=== PATIENT | female | born 1960 | race Caucasian/White ===

== ENCOUNTER → 2018-09-21 | Outpatient (CLI) | payer OTHER ==
--- NOTE | 2018-09-23 15:25 | RADRPT ---
PROCEDURE: Leg length survey CLINICAL INDICATION: Pain, preoperative TECHNIQUE: Standing composite frontal views of the lower extremities with calibrated ruler were obt ained COMPARISON: None FINDINGS: There is lateral pelvic tilt with superiorly positioned left femur and iliac wing. Right leg: The mechanical axis measured by the line at the top of the femoral head to the middle of t he tibial plafond passes through the lateral tibial spine compatible with mild genu valgus. And calib rated length is 91.7 cm. Calibrated length from the top of the femoral head to the tibial plafond is 85 cm. Left leg: Mechanical axis measured by the line at the top of the femoral head to the middle of the t ibial plafond measures 95.8 cm on single uncalibrated image, and passes through the medial tibial spi ne. Calibrated line from the top of the femoral head to the tibial plafond is 89 centimeter. Bilateral hip marginal osteophyte formation without significant cartilage space narrowing. Lower lumb ar spine, sacrum and pubic symphysis are obscured by overlying ruler bowel gas. Severe lateral and me dial tibio-femoral compartment cartilage space narrowing with subchondral sclerosis, subchondral cyst ic change and marginal osteophyte formation in the right knee, and moderate medial tibio-femoral and mild to moderate lateral tibio-femoral compartment cartilage space narrowing with subchondral scleros is and marginal osteophyte formation as well as subchondral cystic change in the left knee. There is tilting of the right talus. IMPRESSION: 1. Leg lengths and mechanical axes as above. 2. Degenerative changes as above. RPTAT: BBDD Physician Jose Date Time Electronically viewed and signed by Physician Jose on 09/23/2018 15:24 AYLA/
== END | disposition home or self-care (01) ==
LOC: HKI 13:36
PROVIDERS: ATTEND Orthopaedic Surgery Adult Reconstructive Orthopaedic Surgery
DX: M17.10 Unilateral primary osteoarthritis, unspecified knee (principal); M25.569 Pain in unspecified knee
CPT/HCPCS: 77073

== ENCOUNTER 2018-12-22 10:04 | Inpatient (IN) | payer OTHER ==
[2018-12-17 12:17] VITALS: Ht 157.5 cm; Wt 60.4 kg
[~2018-12-22] VITALS: Ht 157.5 cm; Wt 60.4 kg
[2018-12-22] VITALS (22 sets, daily range): BP systolic 91–137; BP diastolic 52–75; PULSE 77–94; RESP 12–21
[~2018-12-22 10:04] MED LIST: AMLO2.5T78 PO
[2018-12-22] MEDS ORDERED: AMLO5TAB4 PO (10:30)
[2018-12-22] MEDS ORDERED: GABAPENTIN 300 MG CAP PO SCH (11:30)
[2018-12-22] MEDS ORDERED: TRANEXAMIC ACID 1GM/100ML(PMX) 100 ML PRE-OP X1 IVPB ONE (11:30)
[2018-12-22] MEDS ORDERED: LANSOPRAZOLE 30 MG CAP PO ONE (11:30)
[2018-12-22] MEDS ORDERED: ACETAMINOPHEN 500 MG TAB PO ONE (11:30)
[2018-12-22] MEDS ORDERED: ONDANSETRON 4 MG INJ IV ONE (11:30)
[2018-12-22] MEDS ORDERED: CELECOXIB 200 MG CAP PO ONE ×2 (11:30)
[2018-12-22] MEDS ORDERED: TRANEXAMIC ACID 1GM/100ML(PMX) 100 ML INTRA-OP X1 IVPB ONE (11:30)
[2018-12-22] MEDS ORDERED: LACTATED RINGER'S 1,000 ML IV SCH (11:30)
--- NOTE | 2018-12-22 12:16 | HPN ---
Date/Time of Note Date/Time of Note DATE: 12/22/18 TIME: 12:16 Interval H&P Admission Note Pt. seen H&P reviewed: No system changes Patient denies fever, chills, shortness of breath, chest pain, nausea/vomiting, constipation, diarrhea, numbness, and tingling. MUSCULOSKELETAL: Right lower extremity Skin intact Sensation intact to light touch in a sural, saphenous, deep peroneal, superficial peroneal, medial and lateral plantar nerve distribution. Motor is intact, patient able to dorsiflex and plantarflex ankle and extend and flex great toe. Dorsalis Pedis pulse +2, Brisk capillary refill. Compartments are soft. Calves non-tender to palpation bilaterally. ALEXIA MILES MD December 22, 2018 12:16
--- NOTE | 2018-12-22 12:55 | PREAC ---
Date/Time of Note Date/Time of Note DATE: 12/22/18 TIME: 12:52 Anesthesia Eval and Record Evaluation Time Pre-Procedure Interview DATE: 12/22/18 TIME: 12:52 Age 58 Sex female NPO: 8 hrs Preoperative diagnosis Rt knee arthritis Planned procedure Rt total knee replacement Past Medical History Past Medical History: Includes Cardio: HTN Surgery & Anesthesia Issues No known issue Meds Anticoagulation: No Beta Julianne within 24 hr: No Reason Beta Julianne not given: Pt. not on B-Julianne Reported Medications Amlodipine Besylate* (Norvasc*) 5 Mg Tablet, 5 MG PO DAILY, TAB 12/22/18 Discontinued Reported Medications Amlodipine Besylate* (Amlodipine Besylate*) 2.5 Mg Tablet, 5 MG PO DAILY, #30 TAB 12/17/18 Current Medications Lactated Ringer's 1,000 ml @ 125 mls/hr Q8H IV ; Start 12/22/18 at 11:30; Stop 12/22/18 at 19:29 Gabapentin (Neurontin) 300 mg PRE-OP PO Last administered on 12/22/18at 11:26; Admin Dose 300 MG; Start 12/22/18 at 11:30; Stop 12/22/18 at 15:00 Ropivacaine/ Clonidine/ Epinephrine/ Ketorolac Tromethamine/ Sodium Chloride INTRA-OP INJ ; Start 12/22/18 at 11:30 Meds reviewed: Yes Allergies Coded Allergies: diclofenac (Verified Allergy, Severe, HIVES, DOUBLE VISION, 12/22/18) Allergies Reviewed: Yes Labs/Studies Labs Reviewed: Reviewed by anesthesiologist Blood Bank Test 12/22/18 11:24 Antibody Screen NEGATIVE Blood Type A POSITIVE test: N/A Studies: ECG Pre-procedure Exam Last vitals BP:120/56, P:78, Spo2:100%, T:98,8 Airway: Adequate mouth opening, Adequate thyromental dist Mallampati: Mallampati II Teeth: Normal Lung: Normal Heart: Normal ASA Physical Status ASA physical status: 3 Emergency: None Planned Anesthetic General/MAC: LMA Planned Pain Management Sub-arachniod narcotics, Parenteral pain med Pre-operative Attestations Prior to commencing anesthesia and surgery, the patient was re-evaluated, there was verification of: *The patient's identity *The results of appropriate recent lab work and preoperative vital signs *The above evaluation not changing prior to induction *Anesthetic plan, risk benefits, alternative and complications discussed with patient/family; questions answered; patient/family understands, accepts and wishes to proceed. SAGAR BLEDSOE MD December 22, 2018 12:55
[2018-12-22] MEDS ORDERED: morphine SULFATE/PF (10 MG/10 ML) INJ ONE (12:57)
[2018-12-22] MEDS ORDERED: FENTAnyl 50 MCG/ML VIAL ONE (12:57)
[2018-12-22] MEDS ORDERED: MIDAZOLAM 1 MG/ML 2 ML INJ ONE (12:58)
[2018-12-22] MEDS ORDERED: SEVOFLURANE 15 MIN ONE (13:00)
[2018-12-22] MEDS ORDERED: ONDANSETRON 4 MG INJ ONE (16:36)
[2018-12-22] MEDS ORDERED: PROPOFOL 20 ML ONE (16:37)
[2018-12-22] MEDS ORDERED: CEFAZOLIN 1 GM INJ ONE (16:37)
[2018-12-22] MEDS ORDERED: LIDOCAINE 2% (SDV) 5 ML INJ ONE (16:37)
[2018-12-22] MEDS ORDERED: ROCURONIUM 50 MG INJ ONE (16:37)
[2018-12-22] MEDS: LACTATED RINGER'S 1,000 ML IV SCH (16:48)
[2018-12-22] MEDS ORDERED: DOCUSATE SODIUM 100 MG CAP PO ONE (17:00)
[2018-12-22] MEDS ORDERED: HYDROmorphONE 1 MG/5 ML IV SYRINGE IV PRN ×2 (17:00)
[2018-12-22] MEDS ORDERED: NALOXONE (0.4 MG/ML) INJ IV PRN ×2 (17:00→17:30)
[2018-12-22] MEDS ORDERED: NA PHOSPHATE/BIPHOS 133 ML ENEMA PR PRN (17:00)
[2018-12-22] MEDS ORDERED: MAGNESIUM HYDROXIDE 30ML CUP PO PRN (17:00)
[2018-12-22] MEDS ORDERED: ONDANSETRON 4 MG INJ IV PRN ×2 (17:00→22:30)
[2018-12-22] MEDS ORDERED: BISACODYL 10 MG SUPP PR PRN (17:00)
[2018-12-22] MEDS ORDERED: HYDROmorphONE 1 MG/ML SYG IV PRN (17:00)
[2018-12-22] MEDS ORDERED: oxyCODONE 5 MG TAB PO PRN ×2 (17:00)
[2018-12-22] MEDS ORDERED: METOCLOPRAMIDE 10 MG INJ IV PRN (17:00)
[2018-12-22] MEDS ORDERED: MEPERIDINE 25 MG INJ IV PRN (17:00)
[2018-12-22] MEDS ORDERED: SENNA/DOCUSATE NA (8.6MG/50MG) TAB PO PRN (17:00)
[2018-12-22] MEDS ORDERED: NACL 0.9% 3 ML SYG IV SCH (17:00)
[2018-12-22] MEDS ORDERED: FENTAnyl 50 MCG/ML VIAL IV PRN (17:00)
[2018-12-22] MEDS ORDERED: BETHANECHOL 25 MG TAB PO PRN (17:00)
[2018-12-22] MEDS ORDERED: DIPHENHYDRAMINE 50 MG INJ IV PRN ×2 (17:00)
--- NOTE | 2018-12-22 17:01 | PAC ---
Date/Time of Note Date/Time of Note DATE: 12/22/18 TIME: 17:01 Post-Anesthesia Notes Post-Anesthesia Note Activity: WNL Respiratory function: WNL Cardiovascular function: WNL Mental status: Baseline Pain reasonably controlled: Yes Hydration appropriate: Yes Nausea/Vomiting absent: Yes Comments BP:128/75, P:94, Spo2:100%, T:98,8 SAGAR BLEDSOE MD December 22, 2018 17:01
--- NOTE | 2018-12-22 17:10 | CONS ---
Assessment/Plan Assessment/Plan Hospital Course (Demo Recall) Patient is a female with a past medical history significant for hypertension and rheumatoid arthritis who presents to [place] for his return [facility]sp[facility] for elective total right knee arthroplasty. Patient had uneventful surgery that went well. Patient mildly drowsy in the postanesthesia care unit however denies any headache, nausea, vomiting, chest pain, shortness of breath, abdominal pain. Patient able to move her extremities and denies any acute issues at this time. Patient is mildly sleepy but easily aroused and alert and oriented x4. Of note patient has a past surgical history of appendectomy, myomectomy, tonsillectomy Objective Physical exam General: Patient is laying in bed and answers questions appropriately, mildly sleepy Mentation: Patient is alert and oriented 4, Head: Normocephalic atraumatic Eyes: EOMI, pupils reactive to light Neck: Supple, nontender, midline Respiratory: Clear to auscultation bilaterally Cardiovascular: regular rate, no obvious murmurs Gastrointestinal: non-tender to palpation, bowel sounds heard. Neurological: Moves all extremities spontaneously Skin: Surgery site, bandaged, CDI Assessment and plan Total right knee arthroplasty -Orthopedic surgery to manage -Pain control -Monitor, Hypertension -Continue home amlodipine tomorrow Rheumatoid arthritis -Manage pain, monitor Disposition -Observe overnight for pain management, will continue to follow as internal medicine consult. Consultation Date/Type/Reason Admit Date/Time December 22, 2018 at 10:04 Date/Time of Note DATE: 12/22/18 TIME: 17:10 Past Medical History Home Meds Reported Medications Amlodipine Besylate* (Norvasc*) 5 Mg Tablet, 5 MG PO DAILY, TAB 12/22/18 Discontinued Reported Medications Amlodipine Besylate* (Amlodipine Besylate*) 2.5 Mg Tablet, 5 MG PO DAILY, #30 TAB 12/17/18 Medications Current Medications Lactated Ringer's 1,000 ml @ 125 mls/hr Q8H IV ; Start 12/22/18 at 11:30; Stop 12/22/18 at 19:29 Hydromorphone HCl (Dilaudid) 0.2 mg PACU PRN IV MILD PAIN 1-3; Start 12/22/18 at 17:00; Status UNV Hydromorphone HCl (Dilaudid) 0.4 mg PACU PRN IV MOD PAIN 4-6; Start 12/22/18 at 17:00; Status UNV Fentanyl (Sublimaze) 25 mcg PACU ORDER PRN IV MILD PAIN 1-3; Start 12/22/18 at 17:00; Status UNV Ondansetron HCl (Zofran Inj) 4 mg PACU ORDER PRN IV NAUSEA/VOMITING; Start 12/22/18 at 17:00; Status UNV Metoclopramide HCl (Reglan) 10 mg PACU ORDER PRN IV NAUSEA/VOMITING; Start 12/22/18 at 17:00; Status UNV Meperidine HCl (Demerol) 25 mg PACU ORDER PRN IV .RIGORS; Start 12/22/18 at 17:00; Status UNV Diphenhydramine HCl (Benadryl) 25 mg PACU ORDER PRN IV .PRURITUS; Start 12/22/18 at 17:00; Status UNV Amlodipine Besylate (Norvasc) 5 mg DAILY PO ; Start 12/23/18 at 09:00; Status UNV Naloxone HCl (Narcan) 0.2 mg Q2M PRN IV .RESP RATE; Start 12/22/18 at 17:30; Status UNV Miscellaneous Information (* Miscellaneous Pharmacy Order) DURAMORPH: 0.2 MG SPI... GIVEN NEURAXIAL XX ; Start 12/22/18 at 17:30; Status UNV Lactated Ringer's 1,000 ml @ 80 mls/hr [id number] IV ; Start 12/22/18 at 16:48; Status UNV IV Flush (NS 3 ml) 3 ml PER PROTOCOL IV ; Start 12/22/18 at 17:00; Status UNV Oxycodone HCl (Roxicodone) 15 mg Q4H PRN PO .PAIN; Start 12/22/18 at 17:00; Status UNV Oxycodone HCl (Roxicodone) 10 mg Q4H PRN PO .PAIN; Start 12/22/18 at 17:00; Status UNV Oxycodone HCl (Roxicodone) 5 mg Q4H PRN PO .PAIN; Start 12/22/18 at 17:00; Status UNV Hydromorphone HCl (Dilaudid) 1 mg Q3H PRN IV .BREAKTHROUGH PAIN; Start 12/22/18 at 17:00; Status UNV Acetaminophen (Tylenol Tab) 1,000 mg Q8 PO ; Start 12/22/18 at 22:00; Status UNV Ondansetron HCl (Zofran Inj) 4 mg Q4H PRN IV NAUSEA/VOMITING; Start 12/23/18 at 17:00; Status UNV Gabapentin (Neurontin) 300 mg QHS PO ; Start 12/22/18 at 21:00; Status UNV Pantoprazole (Protonix Tab) 40 mg DAILY@06 PO ; Start 12/24/18 at 06:00; Status UNV Docusate Sodium (Colace) 200 mg NOW ONCE PO ; Start 12/22/18 at 17:00; Stop 12/22/18 at 17:01; Status UNV Docusate Sodium (Colace) 200 mg BID PO ; Start 12/23/18 at 09:00; Stop 12/26/18 at 08:59; Status UNV Simethicone (Mylicon) 80 mg TID PRN PO .GAS; Start 12/22/18 at 17:00; Status UNV Senna/Docusate Sodium (Senokot-S) 2 tab BID PRN PO .CONSTIPATION; Start 12/22/18 at 17:00; Status UNV Magnesium Hydroxide (Milk Of Mag) 30 ml HS PRN PO .CONSTIPATION; Start 12/22/18 at 17:00; Status UNV Bisacodyl (Dulcolax Supp) 10 mg DAILY PRN AR .CONSTIPATION; Start 12/22/18 at 17:00; Status UNV Sodium Biphosphate/ Sodium Phosphate (Fleet Enema) 133 ml DAILY PRN AR .CONSTIPATION; Start 12/22/18 at 17:00; Status UNV Diphenhydramine HCl (Benadryl) 25 mg Q4H PRN IV .ITCHING; Start 12/22/18 at 17:00; Status UNV Naloxone HCl (Narcan) 0.2 mg Q2M PRN IV .RESP RATE; Start 12/22/18 at 17:00; Status UNV Bethanechol Chloride (Urecholine) 25 mg URINARY CATH D/C PRN PO UNABLE TO VOID; Start 12/22/18 at 17:00; Status UNV Aspirin (Halfprin) 81 mg BID PO ; Start 12/23/18 at 09:00; Status UNV Allergies: Coded Allergies: diclofenac (Verified Allergy, Severe, HIVES, DOUBLE VISION, 12/22/18) Social History Smoking Status: Never smoker Exam/Review of Systems Medications Medication Current Medications Lactated Ringer's 1,000 ml @ 125 mls/hr Q8H IV ; Start 12/22/18 at 11:30; Stop 12/22/18 at 19:29 Hydromorphone HCl (Dilaudid) 0.2 mg PACU PRN IV MILD PAIN 1-3; Start 12/22/18 at 17:00; Status UNV Hydromorphone HCl (Dilaudid) 0.4 mg PACU PRN IV MOD PAIN 4-6; Start 12/22/18 at 17:00; Status UNV Fentanyl (Sublimaze) 25 mcg PACU ORDER PRN IV MILD PAIN 1-3; Start 12/22/18 at 17:00; Status UNV Ondansetron HCl (Zofran Inj) 4 mg PACU ORDER PRN IV NAUSEA/VOMITING; Start 12/22/18 at 17:00; Status UNV Metoclopramide HCl (Reglan) 10 mg PACU ORDER PRN IV NAUSEA/VOMITING; Start 12/22/18 at 17:00; Status UNV Meperidine HCl (Demerol) 25 mg PACU ORDER PRN IV .RIGORS; Start 12/22/18 at 17:00; Status UNV Diphenhydramine HCl (Benadryl) 25 mg PACU ORDER PRN IV .PRURITUS; Start 12/22/18 at 17:00; Status UNV Amlodipine Besylate (Norvasc) 5 mg DAILY PO ; Start 12/23/18 at 09:00; Status UNV Naloxone HCl (Narcan) 0.2 mg Q2M PRN IV .RESP RATE; Start 12/22/18 at 17:30; Status UNV Miscellaneous Information (* Miscellaneous Pharmacy Order) DURAMORPH: 0.2 MG SPI... GIVEN NEURAXIAL XX ; Start 12/22/18 at 17:30; Status UNV Lactated Ringer's 1,000 ml @ 80 mls/hr [id number] IV ; Start 12/22/18 at 16:48; Status UNV IV Flush (NS 3 ml) 3 ml PER PROTOCOL IV ; Start 12/22/18 at 17:00; Status UNV Oxycodone HCl (Roxicodone) 15 mg Q4H PRN PO .PAIN; Start 12/22/18 at 17:00; Status UNV Oxycodone HCl (Roxicodone) 10 mg Q4H PRN PO .PAIN; Start 12/22/18 at 17:00; Status UNV Oxycodone HCl (Roxicodone) 5 mg Q4H PRN PO .PAIN; Start 12/22/18 at 17:00; Status UNV Hydromorphone HCl (Dilaudid) 1 mg Q3H PRN IV .BREAKTHROUGH PAIN; Start 12/22/18 at 17:00; Status UNV Acetaminophen (Tylenol Tab) 1,000 mg Q8 PO ; Start 12/22/18 at 22:00; Status UNV Ondansetron HCl (Zofran Inj) 4 mg Q4H PRN IV NAUSEA/VOMITING; Start 12/23/18 at 17:00; Status UNV Gabapentin (Neurontin) 300 mg QHS PO ; Start 12/22/18 at 21:00; Status UNV Pantoprazole (Protonix Tab) 40 mg DAILY@06 PO ; Start 12/24/18 at 06:00; Status UNV Docusate Sodium (Colace) 200 mg NOW ONCE PO ; Start 12/22/18 at 17:00; Stop 12/22/18 at 17:01; Status UNV Docusate Sodium (Colace) 200 mg BID PO ; Start 12/23/18 at 09:00; Stop 12/26/18 at 08:59; Status UNV Simethicone (Mylicon) 80 mg TID PRN PO .GAS; Start 12/22/18 at 17:00; Status UNV Senna/Docusate Sodium (Senokot-S) 2 tab BID PRN PO .CONSTIPATION; Start 12/22/18 at 17:00; Status UNV Magnesium Hydroxide (Milk Of Mag) 30 ml HS PRN PO .CONSTIPATION; Start 12/22/18 at 17:00; Status UNV Bisacodyl (Dulcolax Supp) 10 mg DAILY PRN AR .CONSTIPATION; Start 12/22/18 at 17:00; Status UNV Sodium Biphosphate/ Sodium Phosphate (Fleet Enema) 133 ml DAILY PRN AR .CONSTIPATION; Start 12/22/18 at 17:00; Status UNV Diphenhydramine HCl (Benadryl) 25 mg Q4H PRN IV .ITCHING; Start 12/22/18 at 17:00; Status UNV Naloxone HCl (Narcan) 0.2 mg Q2M PRN IV .RESP RATE; Start 12/22/18 at 17:00; Status UNV Bethanechol Chloride (Urecholine) 25 mg URINARY CATH D/C PRN PO UNABLE TO VOID; Start 12/22/18 at 17:00; Status UNV Aspirin (Halfprin) 81 mg BID PO ; Start 12/23/18 at 09:00; Status UNV JOE CASSIDY December 22, 2018 17:10
--- NOTE | 2018-12-22 17:24 | OPR ---
Date/Time of Note Date/Time of Note DATE: 12/22/18 TIME: 17:11 Operative Report Procedure Date: December 22, 2018 Preoperative Diagnosis Rheumatoid arthritis right knee. Postoperative Diagnosis As above Operation/Procedure Performed Right total knee arthroplasty Complete synovectomy Use of intraoperative navigation Surgeon see signature line Retail Administrative Assistant Hu Ramirez Anesthesia Type: general, epidural Tourniquet Time: 120 minutes Estimated Blood Loss: 10 - 50 ml's Transfusion none Specimen None Grafts/Implants IMPLANTS: Depuy Sigma Femur: size 2.5 PS Tibia: Size 2 Tibial stem: 60 mm, cemented Poly insert: size 2 PS, 10 mm thickness Patella: 32 mm Complications none Pt Condition Post Procedure: stable Disposition: PACU Procedure Description PREOP DIAGNOSIS: Right knee rheumatoid arthritis POSTOP DIAGNOSIS: Same. SURGICAL PROCEDURE: Right total knee arthroplasty. Complete synovectomy Use of intraoperative navigation CPT CODE: 98607. INDICATIONS AND CONSENT: The patient is a 58 year-old woman, with an orthopaedic history consistent with progressively worsening knee pain. They have maximized nonoperative measures, which have included activity modification, medicines, intra-articular injections. On physical exam, they have neutral alignment, no previous open surgical scars. They have ROM 20-50, no gross ligamentous instability. No significant venous stasis or edema. Distally neurovascular intact. They were offered a knee replacement. A lengthy discussion ensued, where the patient was told that if and when the symptoms are intolerable, elective total knee replacement should be considered. The operative procedure was explained using diagrams and or three-dimensional models. The rehabilitation, the potential risks, benefits and alternatives were discussed at length. Specific risks discussed included but were not limited to excessive blood loss and the need for transfusion and therefore the risk of transmissible disease or transfusion reaction, deep infection and the potential need for repetitive debridements, implant removal, long-term antibiotic therapy, possibly requiring deep venous access, extensor mechanism complications, including subluxation or dislocation, disruption of the quadriceps or patellar tendon, fracture of the patella or avulsion of the tibial tuberosity, femoral, tibial or fibular fracture and the need for further surgery for fixation, ne urovascular injury with temporary or permanent numbness, tingling, weakness or paralysis, arterial injury requiring surgery including possible amputation, deep venous thrombosis, pulmonary embolism and , persistent pain, weakness, or limp, late aseptic loosening and the need for revision, polyethylene wear- induced osteolysis and related problems, post-operative stiffness requiring closed manipulation, and finally, a wide variety of unanticipated medical problems. The opportunity to ask questions and address any concerns was provided. The patient elected to proceed with TKA. FINDINGS: Severe synovitis. Classical synovial pannus over the joint. Numerous erosions over the femur and tibia. Severely osteoporotic bone with subchondral cysts throughout the tibia as well as femur. Complete loss of cartilage in all 3 compartments. SURGERY IN DETAIL: Patient was taken into the Operating Room, placed supine on the operating table. Preoperatively, they were given weight-based dosing of Ancef and if MRSA positive vancomycin was given in addition. Tourniquet was placed to the right proximal thigh. Regional anesthesia was administered by Anesthesia Department. Right lower extremity was prepped and draped in sterile fashion. Surgical pause was performed, correctly identifying the patient's name, medical record number, diagnoses, surgical procedure, and laterality of procedure. The leg was elevated, exsanguinated with an Esmarch, tourniquet was inflated to 250 mmHg, remained inflated for 120 minutes, after which it was deflated. An anterior midline incision approximately 15-20 cm in length was made, centered over the patella ending just medial to the tibial tubercle. Skin and subcutaneous tissue sharply dissected down the Rickie's fascia superiorly, which was incised in line with skin incision. The quadriceps tendon, medial patellar retinaculum, patellar tendon were visualized. A medial parapatellar arthrotomy was performed. The extensor mechanism including the patella was scarred down to the femur. There was significant synovial hypertrophy and synovitis. This was excised with a complete synovectomy. Multiple releases were made to mobilize the extensor mechanism and the joint. Care was taken to protect the MCL throughout this. The proximal medial tibia was subperiosteally exposed for a distance of 4 cm from joint line. The deep infrapatellar bursa was incised. The patella was everted and the knee was flexed, while protecting the insertion of patellar tendon. A 3/8-inch curved osteotome was used to enter the semimembranosus bursa at the level of the joint line medially. Medial meniscus was excised at the meniscal-synovial junction. The anterior cruciate ligament was excised. The posterior cruciate ligament was excised with electrocautery from the intercondylar region and a posterior retractor was placed, subluxating the tibia anterolateral to the femur. A hernia was made anterolateral to the lateral meniscus and a right-angle retractor was placed over the anterolateral tibia. A lateral meniscectomy was performed. The inferior lateral geniculate artery was coagulated. The tibia was reduced under the femur. An intramedullary pin was placed for the OrthAlign device. The OrthAlign navigation unit and sensor were calibrated at the back table. The OrthAlign femoral cutting jig was then placed over the central pin, and secured with a medial and lateral pin. The OrthAlign navigation unit and OrthAlign sensor were then attached to the jig. The leg was maneuvered for appropriate capture and ca libration. After this was performed, the navigation unit was adjusted for a 0 varus/valgus (neutral mechanical axis) and 2.0-2.5 degree posterior flexion cut. The cutting jig was locked in place. The navigation and sensor unit were then removed. The distal femoral cut was set at 11 mm for the osteotomy . This was then secured with two pins. A distal femoral osteotomy was performed. The OrthAlign femoral jig was then removed. A posterior retractor was placed and an anterolateral retractor was placed on the tibia, subluxating the tibia anterior to the femur. The OrthAlign tibial cutting jig was then applied to the tibia preliminarily with the strap. This was secured with two pins centered over the medial 1/3 of the tibial tubercle. The offset was established proximally at the ACL footprint. This was then matched distally. Registration was then performed, registering the lateral malleolus and the medial malleolus. After this was performed, the malleolar probe was then utilized to help set the appropriate varus/valgus as well as tibial slope. This was then locked into position. The navigation guide and sensor were then removed. The slotted tibial cutting jig was then applied and secured with two pins. A proximal tibia osteotomy was performed. The tibia was then brought to full extension and a 8 mm spacer block was inserted, and felt to be satisfactory extension gap. The knee was flexed again and the tibial alignment guide was then removed. With the knee flexed to 90 degrees a femoral sizing jig was placed on the distal femur and secured, the femur sized to a size 2.5. Due to preoperative neutral deformity, this was then set on 3 degrees of empiric external rotation, using the posterior condyles. This was parallel to the epicondylar axis. A size 2.5 4-in-1 femoral cutting block was then secured to the femur with two lock pins and an anterior, posterior condylar cut were performed, followed by an anterior chamfer and a posterior chamfer cut. Cutting block was removed. Flexion gap was larger than extension gap. Therefore the Castro-White osteotome was used to release posterior capsule. The extension gap was then 10 mm and was rectangular. A 10 mm spacer was then inserted at 90 degrees of flexion and this was symmetric with the extension gap. An intercondylar box osteotomy was performed using the box cutting guide. A trial tibial base plate, size 2 with a 10 mm cruciate sacrificing polyethylene, and a trial size 2.5 femur were then inserted and the knee was brought to full extension. The patella was everted and the osteochondral junction was exposed. The patella measured 19 mm in thickness. A patellar os teotomy performed leaving 11.5 mm remnant patella. Three lug holes were drilled for the 32 diameter patellar button. When preparing the tibia for the tibial tray it was noted that the posterior medial aspect of the tibia significantly depressed secondary to severe osteoporosis. Therefore it was decided this time to place a 60 mm cemented stem for the final prosthesis to increase stability. The knee then underwent range of motion, soft tissue tension and patellar tracking, everything was symmetric balanced. The patella tracked centrally. The rotation of the tibial component was marked on the tibia. On the tibia, the modular base plate hole was created with the appropriate drills and punches at previously marked rotation. Exposed bony surfaces were thoroughly irrigated and dried. Periarticular injection administered. Cement with antibiotics was mixed at the back table. At the appropriate time and consistency cement was placed in the keel and onto the tibial plateau. Cement was finger pressurized. Cement was placed on the backside of the tibial component and along the keel. The tibial component was placed by hand into the keel and was then impacted and extruded cement removed. Cement was applied to exposed bone of the femur, as well as the posterior condylar portion prostheses, and the femoral component was inserted, extruded cement was then removed. The knee was brought to full extension. Cement was applied to the patella, as well as the patellar button, which was clamped into position. Extruded cement was removed. After the cement completely dried, the knee was flexed, the trial polyethylene was removed. Scored cement was removed. A tourniquet was deflated. Hemostasis was obtained. Pulse lavage was used to irrigate and remove any loose debris from posterior knee. A formal size 2, 10 mm polyethylene was inserted, confirmed seated and locked. The knee was reduced, hemostasis obtained. Copious amounts of irrigation was used with pulse lavage to remove and loose debris. The arthrotomy was closed with 1 PDS in a [id number], interrupted fashion, subcutaneous tissues irrigated, closed with 2-0 Vicryl in an inverted, interrupted fashion. The skin was closed with stephen. A sterile dressing was applied. Sponge, needle and instrument counts were correct at the end of the case. DISPOSITION: Patient transferred to PACU in stable condition. The patient will be weight bearing as tolerated on the operative extremity. PT will begin POD #0 if available. Postoperative AP and lateral of the operative knee will be ordered in PACU. Bilateral knee high SCDs will be worn while admitted. ASA 81mg BID will be given for DVT prophylaxis for 6 weeks. Pain will be controlled with medication. The patient will follow up in clinic in approximately 2 weeks. ESTIMATED BLOOD LOSS: 50 mL. CULTURES: None. PATHOLOGY: Bone. IMPLANTS: PAYMEYuy Sigma Femur: size 2.5 PS Tibia: Size 2 Tibial stem: 60 mm, cemented Poly insert: size 2 PS, 10 mm thickness Patella: 32 mm ALEXIA MILES MD December 22, 2018 17:24
[2018-12-22] MEDS: GABAPENTIN 300 MG CAP PO SCH (20:51)
[2018-12-22] MEDS: ACETAMINOPHEN 500 MG TAB PO SCH (22:00)
[2018-12-23 00:40] VITALS: BP 90/53; PULSE 85; RESP 18
[2018-12-23] MEDS: LACTATED RINGER'S 1,000 ML IV SCH ×2 (05:18→07:43)
[2018-12-23] MEDS: ACETAMINOPHEN 500 MG TAB PO SCH ×3 (06:00→21:27)
[2018-12-23 07:32] VITALS: BP 97/62; PULSE 90; RESP 18
[2018-12-23] MEDS: DOCUSATE SODIUM 100 MG CAP PO SCH ×2 (08:35→21:28)
[2018-12-23] MEDS: ASPIRIN (EC) 81 MG TAB PO SCH ×2 (08:35→21:27)
[2018-12-23] MEDS: oxyCODONE 5 MG TAB PO PRN ×3 (08:35→18:42)
[2018-12-23] MEDS ORDERED: AMLODIPINE 5 MG TAB PO SCH ×2 (09:00→21:00)
--- NOTE | 2018-12-23 12:15 | PN ---
Date/Time of Note Date/Time of Note DATE: 12/23/18 TIME: 12:14 Assessment/Plan Lines/Catheters IV Catheter Type (from Nrsg): Peripheral IV Church in Place (from Nrsg): No Assessment/Plan Chief Complaint/Hosp Course POD#1 s/p primary right TKA. Patient reminded to focus on gaining full extension of the knee. The knee should not be kept in flexion while at rest. There is been no bump or pillow under the knee. The bed should be straight under the knee. -Post op H&H stable -PT/OT -Joints pain control protocol -DVT prophylaxis: SCD's, ASA 81 mg twice daily x6 weeks -Weight bearing status: as tolerated -Post-op XR ordered -Abx: 24h vanc/ancef -Diet: ADAT -Church: Discontinue -Discharge planning consult Planned Discharge Date: Today Discharge to home with home health Subjective 24 Hr Interval Summary Patient doing well No acute events overnight Pain is well controlled Exam/Review of Systems Vital Signs Vitals Vital Signs Date Temp Pulse Resp B/P (MAP) Pulse Ox O2 O2 Flow FiO2 Time Delivery Rate 12/23/18 99.4 90 18 97/62 (74) 95 07:32 12/23/18 Room Air 00:40 12/22/18 2.0 17:46 Intake and Output 12/22/18 12/22/18 12/23/18 1515:00 23:00 07:00 IntakeIntake Total 1600 ml 400 ml OutputOutput Total 880 ml 3050 ml BalanceBalance 720 ml -2650 ml Exam Free Text/Dictation Right lower extremity: Dressing: clean, dry, and intact, no erythema Sensation intact to light touch in a sural, saphenous, deep peroneal, superficial peroneal, medial and lateral plantar nerve distribution. Motor is intact, patient able to dorsiflex and plantarflex ankle and extend and flex great toe. Dorsalis Pedis pulse +2, Brisk capillary refill. Compartments are soft. Calves non-tender to palpation bilaterally. Results Result Diagram: 12/23/18 0422 12/23/18 0422 ALEXIA MILES MD December 23, 2018 12:15
[2018-12-23] MEDS ORDERED: Acetaminophen PO (13:56)
[2018-12-23] MEDS ORDERED: GABA300C16 PO (13:56)
[2018-12-23] MEDS ORDERED: OXYC-481 PO (13:56)
[2018-12-23] MEDS ORDERED: ASPI-1044 PO (13:56)
[2018-12-23 13:57] VITALS: BP 110/65; PULSE 94; RESP 18
--- NOTE | 2018-12-23 13:59 | DS ---
Date/Time of Note Date/Time of Note DATE: 12/23/18 TIME: 13:57 Discharge Summary Admission/Discharge Info Admit Date/Time December 22, 2018 at 10:04 Discharge Date/Time Patient Condition: Good Hospital Course POD#1 s/p primary right TKA. Patient reminded to focus on gaining full extension of the knee. The knee should not be kept in flexion while at rest. The patient is cleared to be discharged home with home health and with home physical therapy. She is medically and surgically stable. Patient should follow-up in 2 weeks. -Post op H&H stable -PT/OT -Joints pain control protocol -DVT prophylaxis: SCD's, ASA 81 mg twice daily x6 weeks -Weight bearing status: as tolerated -Post-op XR ordered -Abx: 24h vanc/ancef -Diet: ADAT -Church: Discontinue -Discharge planning consult Planned Discharge Date: Today Discharge to home with home health Home Meds Reported Medications Amlodipine Besylate* (Norvasc*) 5 Mg Tablet, 5 MG PO DAILY, TAB 12/22/18 Discontinued Reported Medications Amlodipine Besylate* (Amlodipine Besylate*) 2.5 Mg Tablet, 5 MG PO DAILY, #30 TAB 12/17/18 Primary Care Provider Not On Staff Doctor Pending Labs Laboratory Tests Test 12/23/18 04:22 12/23/18 07:12 White Blood Count 9.9 10^3/ul (4.8-10.8) Red Blood Count 3.93 10^6/ul (4.20-5.40) Hemoglobin 10.4 g/dl (12.0-16.0) Hematocrit 32.3 % (37.0-47.0) Mean Corpuscular Volume 82.2 fl (82.0-101.0) Mean Corpuscular Hemoglobin 26.5 pg (29.0-33.0) Mean Corpuscular 32.2 g/dl (32.0-37.0) Hemoglobin Concent Red Cell Distribution Width 15.2 % (11.5-14.5) Platelet Count 189 10^3/UL (140-415) Mean Platelet Volume 12.1 fl (7.4-10.4) Immature Granulocytes % 0.500 % (0.001-0.429) Neutrophils % 71.6 % (39.0-77.0) Lymphocytes % 17.5 % (15.0-51.0) Monocytes % 8.9 % (0.0-11.0) Eosinophils % 1.0 % (0.0-7.0) Basophils % 0.5 % (0.0-2.0) Nucleated Red Blood Cells % 0.0 /100WBC (0.0-0.0) Immature Granulocytes # 0.050 10^3/ul (0.0-0.031) Neutrophils # 7.1 10^3/ul (1.6-7.5) Lymphocytes # 1.7 10^3/ul (0.8-2.9) Monocytes # 0.9 10^3/ul (0.3-0.9) Eosinophils # 0.1 10^3/ul (0.0-0.5) Basophils # 0.1 10^3/ul (0.0-0.1) Nucleated Red Blood Cells # 0.0 10^3/ul (0.0-0.0) Sodium Level 135 mmol/L (135-144) Potassium Level 4.7 mmol/L (3.5-5.1) Chloride Level 102 mmol/L (97-110) Carbon Dioxide Level 29 mmol/L (21-31) Anion Gap 4 (5-13) Blood Urea Nitrogen 7 mg/dl (7-20) Creatinine 0.50 mg/dl (0.44-1.00) Est Glomerular Filtrat > 60 mL/min (>60) Rate mL/min Glucose Level 99 mg/dl (70-220) Calcium Level 8.1 mg/dl (8.4-10.2) Lab Scanned Report [facility] [id number] Microbiology Date/Time Source Procedure Growth Status 12/22/18 16:54 Church Catheter Urine Culture - Preliminary NO GROWTH Resulted AFTER 24 HOURS ALEXIA MILES MD December 23, 2018 13:59
--- NOTE | 2018-12-23 14:37 | PN ---
Date/Time of Note Date/Time of Note DATE: 12/23/18 TIME: 14:35 Objective Vitals Vital Signs Date Temp Pulse Resp B/P (MAP) Pulse Ox O2 O2 Flow FiO2 Time Delivery Rate 12/23/18 37.7 14:03 12/23/18 94 18 110/65 98 13:57 (80) 12/23/18 Room Air 00:40 12/22/18 2.0 17:46 Intake and Output 12/22/18 12/22/18 12/23/18 1515:00 23:00 07:00 IntakeIntake Total 1600 ml 400 ml OutputOutput Total 880 ml 3050 ml BalanceBalance 720 ml -2650 ml Results Result Diagram: 12/23/18 0422 12/23/18 042 Medications Medications Current Medications Naloxone HCl (Narcan) 0.2 mg Q2M PRN IV .RESP RATE; Start 12/22/18 at 17:30 Miscellaneous Information (* Miscellaneous Pharmacy Order) DURAMORPH: 0.2 MG SPI... GIVEN NEURAXIAL XX ; Start 12/22/18 at 17:30 Lactated Ringer's 1,000 ml @ 80 mls/hr [id number] IV Last administered on 12/23/18at 07:43; Admin Dose 80 MLS/HR; Start 12/22/18 at 16:48 IV Flush (NS 3 ml) 3 ml PER PROTOCOL IV ; Start 12/22/18 at 17:00 Oxycodone HCl (Roxicodone) 15 mg Q4H PRN PO .PAIN; Start 12/22/18 at 17:00 Oxycodone HCl (Roxicodone) 10 mg Q4H PRN PO .PAIN Last administered on 12/23/18at 12:25; Admin Dose 10 MG; Start 12/22/18 at 17:00 Oxycodone HCl (Roxicodone) 5 mg Q4H PRN PO .PAIN; Start 12/22/18 at 17:00 Hydromorphone HCl (Dilaudid) 1 mg Q3H PRN IV .BREAKTHROUGH PAIN; Start 12/22/18 at 17:00 Acetaminophen (Tylenol Tab) 1,000 mg Q8 PO Last administered on 12/23/18at 14:03; Admin Dose 1,000 MG; Start 12/22/18 at 22:00 Gabapentin (Neurontin) 300 mg QHS PO Last administered on 12/22/18at 20:51; Admin Dose 300 MG; Start 12/22/18 at 21:00 Pantoprazole (Protonix Tab) 40 mg DAILY@06 PO ; Start 12/24/18 at 06:00 Docusate Sodium (Colace) 200 mg BID PO Last administered on 12/23/18at 08:35; Admin Dose 200 MG; Start 12/23/18 at 09:00; Stop 12/26/18 at 08:59 Simethicone (Mylicon) 80 mg TID PRN PO .GAS; Start 12/22/18 at 17:00 Senna/Docusate Sodium (Senokot-S) 2 tab BID PRN PO .CONSTIPATION; Start 12/22/18 at 17:00 Magnesium Hydroxide (Milk Of Mag) 30 ml HS PRN PO .CONSTIPATION; Start 12/22/18 at 17:00 Bisacodyl (Dulcolax Supp) 10 mg DAILY PRN SD .CONSTIPATION; Start 12/22/18 at 17:00 Sodium Biphosphate/ Sodium Phosphate (Fleet Enema) 133 ml DAILY PRN SD .CONSTIPATION; Start 12/22/18 at 17:00 Diphenhydramine HCl (Benadryl) 25 mg Q4H PRN IV .ITCHING Last administered on 12/23/18at 00:49; Admin Dose 25 MG; Start 12/22/18 at 17:00 Bethanechol Chloride (Urecholine) 25 mg URINARY CATH D/C PRN PO UNABLE TO VOID; Start 12/22/18 at 17:00 Aspirin (Halfprin) 81 mg BID PO Last administered on 12/23/18at 08:35; Admin Dose 81 MG; Start 12/23/18 at 09:00 Ondansetron HCl (Zofran Inj) 4 mg Q4H PRN IV NAUSEA/VOMITING Last administered on 12/22/18at 22:38; Admin Dose 4 MG; Start 12/22/18 at 22:30 Amlodipine Besylate (Norvasc) 5 mg QHS PO ; Start 12/23/18 at 21:00 VTE Prophylaxis Risk score (from Ns)>0 risk: 7 SCD applied (from Nsg): Yes Lines/Catheters IV Catheter Type: Church in Place: No Assessment/Plan Hospital Course Subjective Patient doing well, mild low BP, however completely asymptomatic and blood pressure is back above 100 now. Minimal pain, no headache, no nausea, no vomiting Objective Physical exam General: Patient is laying in bed and answers questions appropriately, mildly sleepy Mentation: Patient is alert and oriented 4, Head: Normocephalic atraumatic Eyes: EOMI, pupils reactive to light Neck: Supple, nontender, midline Respiratory: Clear to auscultation bilaterally Cardiovascular: regular rate, no obvious murmurs Gastrointestinal: non-tender to palpation, bowel sounds heard. Neurological: Moves all extremities spontaneously Skin: Surgery site, bandaged, CDI Assessment and plan Total right knee arthroplasty -Orthopedic surgery to manage -Pain control -Monitor, Hypertension -Continue home amlodipine tonight as scheduled if blood pressure is above 115, counseled patient extensively on monitoring her home blood pressure as currently her blood pressure is mildly hypotensive right now. If patient's blood pressure continues to be low or patient becomes symptomatic patient was instructed to strictly come back to the ED as soon as possible. Daughter is also at bedside with counseling. Rheumatoid arthritis -Manage pain, monitor Disposition -Patient stable for discharge per internal medicine perspective however patient needs to have strict monitoring of her blood pressure in the next 24 to 48 hours and strict instructions will need to be given regarding when she needs to take her blood pressure medication if at all. Patient instructed to return to the ED if any complications arise immediately. JOE CASSIDY December 23, 2018 14:37
[2018-12-23] MEDS ORDERED: ONDANSETRON 4 MG INJ IV PRN (17:00)
[2018-12-23 21:11] VITALS: BP 122/75; PULSE 93; RESP 19
[2018-12-23] MEDS: GABAPENTIN 300 MG CAP PO SCH (21:27)
[2018-12-24 02:19] VITALS: BP 118/75; PULSE 94; RESP 18
[2018-12-24] MEDS ORDERED: PANTOPRAZOLE (EC) 40 MG TAB PO SCH (06:00)
[2018-12-24] MEDS: ACETAMINOPHEN 500 MG TAB PO SCH ×2 (06:13→14:00)
[2018-12-24 08:08] VITALS: BP 109/69; PULSE 78; RESP 18
[2018-12-24] MEDS: ASPIRIN (EC) 81 MG TAB PO SCH (08:59)
[2018-12-24] MEDS: DOCUSATE SODIUM 100 MG CAP PO SCH (08:59)
--- NOTE | 2018-12-24 11:55 | PN ---
Date/Time of Note Date/Time of Note DATE: 12/24/18 TIME: 11:53 Objective Vitals Vital Signs Date Temp Pulse Resp B/P (MAP) Pulse Ox O2 O2 Flow FiO2 Time Delivery Rate 12/24/18 97.8 78 18 109/69 95 Room Air 08:08 (82) 12/22/18 2.0 17:46 Intake and Output 12/23/18 12/23/18 12/24/18 1515:00 23:00 07:00 IntakeIntake Total 200 ml 1700 ml 200 ml BalanceBalance 200 ml 1700 ml 200 ml Results Result Diagram: 12/24/18 0420 12/24/18 0420 Medications Medications Current Medications Naloxone HCl (Narcan) 0.2 mg Q2M PRN IV .RESP RATE; Start 12/22/18 at 17:30 Miscellaneous Information (* Miscellaneous Pharmacy Order) DURAMORPH: 0.2 MG SPI... GIVEN NEURAXIAL XX ; Start 12/22/18 at 17:30 IV Flush (NS 3 ml) 3 ml PER PROTOCOL IV ; Start 12/22/18 at 17:00 Oxycodone HCl (Roxicodone) 15 mg Q4H PRN PO .PAIN; Start 12/22/18 at 17:00 Oxycodone HCl (Roxicodone) 10 mg Q4H PRN PO .PAIN Last administered on 12/23/18at 18:42; Admin Dose 10 MG; Start 12/22/18 at 17:00 Oxycodone HCl (Roxicodone) 5 mg Q4H PRN PO .PAIN; Start 12/22/18 at 17:00 Hydromorphone HCl (Dilaudid) 1 mg Q3H PRN IV .BREAKTHROUGH PAIN; Start 12/22/18 at 17:00 Acetaminophen (Tylenol Tab) 1,000 mg Q8 PO Last administered on 12/24/18at 06:13; Admin Dose 1,000 MG; Start 12/22/18 at 22:00 Gabapentin (Neurontin) 300 mg QHS PO Last administered on 12/23/18at 21:27; Admin Dose 300 MG; Start 12/22/18 at 21:00 Pantoprazole (Protonix Tab) 40 mg DAILY@06 PO Last administered on 12/24/18at 06:14; Admin Dose 40 MG; Start 12/24/18 at 06:00 Docusate Sodium (Colace) 200 mg BID PO Last administered on 12/24/18at 08:59; Admin Dose 200 MG; Start 12/23/18 at 09:00; Stop 12/26/18 at 08:59 Simethicone (Mylicon) 80 mg TID PRN PO .GAS; Start 12/22/18 at 17:00 Senna/Docusate Sodium (Senokot-S) 2 tab BID PRN PO .CONSTIPATION; Start 12/22/18 at 17:00 Magnesium Hydroxide (Milk Of Mag) 30 ml HS PRN PO .CONSTIPATION; Start 12/22/18 at 17:00 Bisacodyl (Dulcolax Supp) 10 mg DAILY PRN [place] .CONSTIPATION; Start 12/22/18 at 17:00 Sodium Biphosphate/ Sodium Phosphate (Fleet Enema) 133 ml DAILY PRN [place] .CONSTIPATION; Start 12/22/18 at 17:00 Diphenhydramine HCl (Benadryl) 25 mg Q4H PRN IV .ITCHING Last administered on 12/23/18at 00:49; Admin Dose 25 MG; Start 12/22/18 at 17:00 Bethanechol Chloride (Urecholine) 25 mg URINARY CATH D/C PRN PO UNABLE TO VOID; Start 12/22/18 at 17:00 Aspirin (Halfprin) 81 mg BID PO Last administered on 12/24/18at 08:59; Admin Dose 81 MG; Start 12/23/18 at 09:00 Ondansetron HCl (Zofran Inj) 4 mg Q4H PRN IV NAUSEA/VOMITING Last administered on 12/22/18at 22:38; Admin Dose 4 MG; Start 12/22/18 at 22:30 Amlodipine Besylate (Norvasc) 5 mg QHS PO Last administered on 12/23/18at 21:27; Admin Dose 5 MG; Start 12/23/18 at 21:00 VTE Prophylaxis Risk score (from Nsg)>0 risk: 6 SCD applied (from Nsg): Yes Lines/Catheters IV Catheter Type: Church in Place: No Assessment/Plan Hospital Course Subjective Patient felt feverish and sweated last night, however back to baseline. Patient does complain of some mild difficulty urinating. No nausea, vomiting or other issues, no headache. Objective Physical exam General: Patient is laying in bed and answers questions appropriately, mildly sleepy Mentation: Patient is alert and oriented 4, Head: Normocephalic atraumatic Eyes: EOMI, pupils reactive to light Neck: Supple, nontender, midline Respiratory: Clear to auscultation bilaterally Cardiovascular: regular rate, no obvious murmurs Gastrointestinal: non-tender to palpation, bowel sounds heard. Neurological: Moves all extremities spontaneously Skin: Surgery site, bandaged, CDI Assessment and plan Total right knee arthroplasty -Orthopedic surgery to manage -Pain control -Monitor, Hypertension -Continue home medications, monitor blood pressure Mild fever -Likely related to surgical events however due to vague complaints of urinary discomfort, will get urinalysis to ensure no UTI before discharge -Resolved Rheumatoid arthritis -Manage pain, monitor Disposition -Follow-up with [facility]A before discharge, if positive for UTI, discharge patient on a short course of oral antibiotics. JOE CASSIDY December 24, 2018 11:55
[2018-12-24] MEDS ORDERED: CIPR500T4 PO (13:56)
[2018-12-24] MEDS: oxyCODONE 5 MG TAB PO PRN (14:01)
== END 2018-12-24 14:55 | disposition home health service (06) | DRG 470 ==
LOC: REC 10:04 → EDSTATUS 12:00 → MS1 18:25
PROVIDERS: ADMIT Orthopaedic Surgery Adult Reconstructive Orthopaedic Surgery; ATTEND Orthopaedic Surgery Adult Reconstructive Orthopaedic Surgery
PROC: 0SBC0ZZ Excision of Right Knee Joint, Open Approach (ICD-10-PCS; 2018-12-22)
PROC: 0SRC0J9 Replacement of Right Knee Joint with Synthetic Substitute, Cemented, Open Approach (ICD-10-PCS; principal; 2018-12-22 12:00)
DX: M06.261 Rheumatoid bursitis, right knee (principal); I10 Essential (primary) hypertension; M81.0 Age-related osteoporosis without current pathological fracture
CPT/HCPCS: 71045; 73560; 80048; 81001; 85025; 86850; 86900; 86901; 87081; 87086; 88304; 88311; 97110; 97116; 97161; 97165; 97530; 97535; C1713; C1776; J0171; J0690; J0735; J1200; J1885; J2250; J2274; J2405; J2795; J3010; J7120